=== PATIENT | male | born 1995 | race Two or more races ===

== ENCOUNTER 2022-05-12 03:32 | Emergency (ER) | payer SELFPAY ==
[2022-05-12] MEDS ORDERED: Diphtheria,Pertussis(Acell),Tetanus Vaccine 0.5 ML Syringe IM ONE (03:47)
[2022-05-12] MEDS ORDERED: Amoxicillin/Clavulanate K 875-125 MG Tab PO ONE (04:15)
== END 2022-05-12 04:45 | disposition home or self-care (01) ==
LOC: JD.ED 03:32
DX: S67.195A Crushing injury of left ring finger, initial encounter (principal); S62.665B Nondisplaced fracture of distal phalanx of left ring finger, initial encounter for open fracture; S61.215A Laceration without foreign body of left ring finger without damage to nail, initial encounter; J45.909 Unspecified asthma, uncomplicated; Z23 Encounter for immunization; W23.0XXA Caught, crushed, jammed, or pinched between moving objects, initial encounter; Y92.009 Unspecified place in unspecified non-institutional (private) residence as the place of occurrence of the external cause
CPT/HCPCS: 73140; 90471; 90715; 99283; A9270

== ENCOUNTER 2023-10-17 12:50 | Emergency (ER) | payer SELFPAY ==
[2023-10-17] MEDS: Ketorolac 60 MG/2 ML SDV IM ONE (14:03)
== END 2023-10-17 14:28 | disposition home or self-care (01) ==
LOC: JD.ED 12:50
DX: S46.912A Strain of unspecified muscle, fascia and tendon at shoulder and upper arm level, left arm, initial encounter (principal); S69.92XA Unspecified injury of left wrist, hand and finger(s), initial encounter; X50.0XXA Overexertion from strenuous movement or load, initial encounter
CPT/HCPCS: 73140; 96372; 99283; J1885